=== PATIENT | male | born 2000 | race Caucasian/White ===

== ENCOUNTER 2022-01-01 14:33 | Emergency (ER) | payer OTHER ==
[2022-01-01] MEDS ORDERED: Ondansetron 4 MG/2 ML SDV IVPUSH ONE (14:45)
[2022-01-01] MEDS ORDERED: Morphine 4 MG/ML VIAL IVPUSH ONE (14:45)
[2022-01-01] MEDS ORDERED: Sodium Chloride 0.9% 1,000 ML IV ONE (14:45)
[2022-01-01 15:27] LABS: CARBON DIOXIDE,CO2 26.7 mmol/L (21.0-32.0); POTASSIUM,K 3.6 mmol/L (3.5-5.1)
[2022-01-01] MEDS ORDERED: Iopamidol 755 MG/ML 500 ML Multipack Bottle IVPUSH STA (16:30)
== END 2022-01-01 17:24 | disposition home or self-care (01) ==
LOC: MW.ED 14:33
DX: R51.9 Headache, unspecified (principal); F17.210 Nicotine dependence, cigarettes, uncomplicated
CPT/HCPCS: 36415; 70450; 70486; 71260; 72125; 74177; 80053; 85025; 96374; 96375; 99284; J2270; J2405; J7030; Q9967; 72128; 72128-26; 72131; 72131-26; 99285

== ENCOUNTER 2022-02-23 17:22 | Emergency (ER) | payer OTHER ==
[2022-02-23] MEDS ORDERED: Sodium Chloride 0.9% 10 ML Syringe FLUSH PRN (17:36)
[2022-02-23] MEDS ORDERED: Sodium Chloride 0.9% 2.5 ML Syringe FLUSH PRN (17:36)
[2022-02-23 20:24] LABS: ACETAMINOPHEN <2.0 ug/mL; BLOOD UREA NITROGEN,BUN 12 mg/dL (7.0-18.0); CARBON DIOXIDE,CO2 30.9 mmol/L (21.0-32.0); CHLORIDE,CL 104 mmol/L (98-107); ESTIMATED GFR 128 mL/min (>60); GLUCOSE RANDOM 88 mg/dL (74-106); LIPASE 96 U/L (73-393); POTASSIUM,K 3.4 mmol/L (3.5-5.1); SODIUM,NA 142 mmol/L (136-148)
== END 2022-02-23 21:35 | disposition home or self-care (01) ==
LOC: MW.ED 17:22
DX: T50.901A Poisoning by unspecified drugs, medicaments and biological substances, accidental (unintentional), initial encounter (principal); R91.8 Other nonspecific abnormal finding of lung field; Z20.822 Contact with and (suspected) exposure to COVID-19
CPT/HCPCS: 36415; 71045; 71045-26; 71275; 71275-26; 74177; 74177-26; 80053; 80143; 80179; 80305-QW; 80307; 81003; 82550; 83605; 83690; 84484; 85025; 85610; 93005; 99284; U0002

== ENCOUNTER 2023-01-26 07:57 | Emergency (ER) | payer SELFPAY | END 2023-01-26 08:43 | disposition home or self-care (01) | LOC: MW.ED 07:57 | DX: K08.89 Other specified disorders of teeth and supporting structures (principal); F17.210 Nicotine dependence, cigarettes, uncomplicated | CPT/HCPCS: 99282; 99283 ==